=== PATIENT | male | born 1945 | race African-American/Black ===

== ENCOUNTER → 2016-10-07 | Outpatient (CLI) | payer OTHER ==
[~2016-10-07] VITALS: Ht 167.6 cm; Wt 113.4 kg
[~2016-10-07] MED LIST: HYDROCHLOROTHIA25 M2 PO; LISINOPRIL40 MG PO; NEURONTIN 300300 M1 PO; NORVASC10 MG PO; OMEPRAZOLE 20 M20 M1 PO; PIOGLITAZONE15 MG; PRAVACHOL40 MG PO; PROPRANOLOL 20M20 M1 PO; REFRESH OPTIVE1 EACH OP; SIMETHICON CHEW80 M1 PO; TYLENOL325 MG PO; VITAMIN B-12500 MCG PO; VITAMIN D3400 UNIT PO; VOLTAREN GEL 1100 G1 TOP; ZOCOR20 MG PO
--- NOTE | ~2016-10-07 | HPC ---
[facility] [address] [place] [address] PAIN MANAGEMENT CONSULTATION Name: RAYMOND CABEZAS Room #: REG [facility].#: [id number] Admission: 10/07/16 Attend Phys: Remigio Enriquez DO Discharge: Date of : 47 Report #: [id number] THIS REPORT FOR: //name// CC: Lor Dowell DO FAM unknown Remigio Enriquez The patient is a very pleasant 71-year-old gentleman seen in consultation at the request of Dr. Dowell for evaluation of chronic axial back pain, lumbar radiculopathy. The patient notes he has pain in his back, hips, and knees. Pain is exacerbated with standing and walking. He has been started on gabapentin, titrated up to 300 mg t.i.d. with nominal efficacy. Still notes his pain is a 10 on a 0-10 visual analog scale. Describes constant aching pain. Has subjective paresthesia in his lower extremities, but does note he has diabetic peripheral neuropathy. He does have ongoing weakness. Denies bowel or bladder continence changes. Ambulation is significantly impacted perhaps even more by rather dramatic tremor, then by specific weakness though he is quite debilitated presently. REVIEW OF SYSTEMS: Complete review of systems attached to chart and gone over with the patient. He is single, seen in the company of his son who is supportive. He has a 30 plus pack year smoking history. Drinks alcohol socially. History of diabetes, currently taking pioglitazone (Actos), hypertension for which he takes hydrochlorothiazide, amlodipine, lisinopril. He also takes propranolol, unclear if this is for hypertension or for his fairly significant essential tremor. He takes omeprazole for gastroesophageal reflux, simvastatin and pravastatin for dyslipidemia. 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 He is retired. Pain impact score is 44/70. PHYSICAL EXAMINATION: Reveals an obese, 5 feet 6 inches, 250 pound gentleman, BMI is 40.4 kilograms per meter squared. Blood pressure is 160/89, pulse 92, respirations 16. Cranial nerves 2-12 are grossly intact. Again, left eye is enucleated. Cervical range of motion is full. Thyroid is enlarged, no nodules are noted. The patient does note subjective vertigo with cervical range of motion testing. Upper extremity strength is generally preserved. Has an essential tremor noted in the torso, upper extremities and head and neck. Exacerbated with intention. Heart is regular and rhythmical without murmur. Lungs show rhonchi throughout. He has an endomorphic build. Rises from chair using assistance, great difficulty with ambulation, significant intention murmur with step. He states he uses a walker at home, though with 2-person assistance he had difficulty walking 2 feet. Lower extremity strength is objectively about 3-4/5 to all muscle groups tested. Straight leg raise is modestly positive bilaterally. Patellar and Achilles reflexes are diminished. I was unable to elicit either patellar or Achilles, left or right side. Skin integument [address] [address] PAIN MANAGEMENT CONSULTATION Name: RAYMOND CABEZAS Room #: REG [facility]#: [id number] Admission: 10/07/16 Attend Phys: Remigio Enriquez DO Discharge: Date of : 47 Report #: [id number] generally intact. DIAGNOSTIC STUDIES: Include MRI of the cervical and lumbar spine from 03/16/2016. Cervical canal shows excessive epidural adipose tissue, most marked below L3 foramen or compromised bilaterally L3 through S1. Facet degenerative changes are noted below L3. ASSESSMENT: Symptomatic lumbar radiculopathy secondary to spinal stenosis in a gentleman with history of non-insulin dependent diabetes, fairly dramatic tremor which significantly impacts function and morbid obesity. RECOMMENDATIONS: I had a long discussion with the patient and his son today. The patient absolutely needs to increase physical activity. He has home exercises that were generated by the therapist, though he really does not do them at home. I talked about doing an injection today to help some with pain, I bargained with the patient telling him I would do the injection only if he agreed to do physical activity. His greatest impact and function, however, is not radicular pain or weakness. It is a fairly dramatic tremor. He told me his physicians had suggested brain stimulator which I think would be an excellent option for the patient. If we could control his tremor, I think he would be a lot more functional. Increasing function may enable some weight loss and better glucose control. We will strongly advocate for his healthcare providers to consider moving forward with neurosurgery and consideration for implantation of brain stimulating device to help with tremor. ASSESSMENT: Symptomatic lumbar radiculopathy secondary to spinal stenosis. PROCEDURE NOTE: Lumbar epidural injection under fluoroscopy. DESCRIPTION OF PROCEDURE: The patient was placed supine on the gurney, rolled into the procedure room, "logrolled" onto the procedure table, prone. Skin overlying the back was cleansed with ChloraPrep. Skin wheal with Xylocaine was raised. A 20-gauge epidural Tuohy needle was inserted in the midline at L4-L5 with good loss to resistance. AP and lateral projections showed good needle placement with spread of contrast within the epidural space. Sixty mg of triamcinolone plus 1 mL of 0.5% preservative-free bupivacaine was injected into and around the epidural space. Needle was removed. The area was cleansed. Band-Aid was applied. The patient monitored for an appropriate period of time, discharged in good and stable condition. <ELECTRONICALLY SIGNED> By: Remigio Enriquez DO 10/09/16 1252 1231 09 Remigio Enriquez DO /nt
[2016-10-07 10:49] VITALS: BP 160/89
== END | disposition home or self-care (01) ==
LOC: PAIN 06:41
DX: M48.06 Spinal stenosis, lumbar region (principal); E11.40 Type 2 diabetes mellitus with diabetic neuropathy, unspecified; R25.1 Tremor, unspecified; E66.01 Morbid (severe) obesity due to excess calories; Z68.41 Body mass index [BMI] 40.0-44.9, adult; I10 Essential (primary) hypertension; K21.9 Gastro-esophageal reflux disease without esophagitis; E78.5 Hyperlipidemia, unspecified; F32.89 Other specified depressive episodes; M19.90 Unspecified osteoarthritis, unspecified site; Z79.899 Other long term (current) drug therapy